=== PATIENT | female | born 1980 | race Caucasian/White ===

== ENCOUNTER 2018-07-02 12:18 | Outpatient (CLI) | payer MEDICAID ==
[2018-07-02 14:01] LABS: RHOGAM PROFILE 1 1
== END 2018-07-02 14:48 | disposition home or self-care (01) ==
LOC: OBT 12:18 → L-D 12:18 → OBT 14:48
DX: O09.522 Supervision of elderly multigravida, second trimester (principal); Z3A.28 28 weeks gestation of pregnancy
CPT/HCPCS: 76818; 86850; 86885; 86900; 86901; 96372

== ENCOUNTER 2018-08-04 13:07 | Outpatient (CLI) | payer MEDICAID | END 2018-08-04 18:45 | disposition home or self-care (01) | LOC: OBT 13:07 → L-D 13:09 → OBT 18:45 | DX: O9A.213 Injury, poisoning and certain other consequences of external causes complicating pregnancy, third trimester (principal); O62.9 Abnormality of forces of labor, unspecified; O09.523 Supervision of elderly multigravida, third trimester; Z3A.31 31 weeks gestation of pregnancy | CPT/HCPCS: 76815; 85460; 86850; 86870; 86900; 86901 ==

== ENCOUNTER 2018-09-01 19:00 | Emergency (ER) | payer MEDICAID ==
[2018-09-01 21:19] LABS: ADD MAN DIFF? NO
[2018-09-01 21:20] LABS: WHITE BLOOD COUNT 6.9 10^3/ul (4.8-10.8)
[2018-09-01 21:20] LABS: ABNORMAL IP MESSAGE 1; BASOPHILS % 0.1 % (0.0-2.0); EOSINOPHILS # 0.1 10^3/ul (0.0-0.5); EOSINOPHILS % 0.9 % (0.0-7.0); HEMATOCRIT 32.6 % (37.0-47.0); HEMOGLOBIN 10.6 g/dl (12.0-16.0); LYMPHOCYTES # 1.5 10^3/ul (0.8-2.9); MEAN CORPUSCULAR HGB CONC 32.5 g/dl (32.0-37.0); MEAN CORPUSCULAR VOLUME 89.3 fl (82.0-101.0); MONOCYTE # 0.5 10^3/ul (0.3-0.9); MONOCYTES % 6.7 % (0.0-11.0); NEUTROPHIL # 4.8 10^3/ul (1.6-7.5); NEUTROPHILS % 69.9 % (39.0-77.0); PLATELET COUNT 131 10^3/UL (140-415); RED BLOOD COUNT 3.65 10^6/ul (4.20-5.40); RED CELL DISTRIBUTION WIDTH 14.8 % (11.5-14.5)
[2018-09-01 21:29] LABS: MEAN PLATELET VOLUME 13.6 fl (7.4-10.4); POSITIVE DIFF @See below
[2018-09-01 21:48] LABS: ALANINE AMINOTRANSFERASE 9 IU/L (13-69); ALBUMIN 3.7 g/dl (3.3-4.9); ALBUMIN/GLOBULIN RATIO 1.02; ALKALINE PHOSPHATASE 188 IU/L (42-121); ANION GAP 8 (5-13); ASPARTATE AMINO TRANSFERASE 23 IU/L (15-46); BILIRUBIN,INDIRECT 0.1 mg/dl (0-1.1); BILIRUBIN,TOTAL 0.1 mg/dl (0.2-1.3); BLOOD UREA NITROGEN 9 mg/dl (7-20); CALCIUM 9.8 mg/dl (8.4-10.2); CARBON DIOXIDE 22 mmol/L (21-31); CHLORIDE 106 mmol/L (97-110); CREATININE 0.34 mg/dl (0.44-1.00); Estimated GFR > 60 mL/min (>60); GLUCOSE 99 mg/dl (70-220); LIPASE 107 U/L (23-300); SODIUM 136 mmol/L (135-144); TOTAL PROTEIN 7.3 g/dl (6.1-8.1)
== END 2018-09-01 22:26 | disposition home or self-care (01) ==
LOC: FTE 19:00
DX: O26.893 Other specified pregnancy related conditions, third trimester (principal); L29.9 Pruritus, unspecified; Z3A.37 37 weeks gestation of pregnancy
CPT/HCPCS: 36415; 80053; 83690; 85025; 99283

== ENCOUNTER 2018-09-06 14:55 | Inpatient (IN) | payer MEDICAID ==
[~2018-09-06 14:55] MED LIST: OXYTOCIN 30 UNITS/LR 500 ML BAG IV
[2018-09-06] MEDS: LACTATED RINGER'S 1,000 ML IV ×3 (15:23→18:40)
[2018-09-06] MEDS ORDERED: CARBOPROST 250 MCG INJ IM ×2 (18:30→21:30)
[2018-09-06] MEDS ORDERED: CEFAZOLIN 2 GM/50 ML (PMX) 50 ML IVPB (18:30)
[2018-09-06] MEDS ORDERED: MISOPROSTOL 200 MCG TAB PR ×2 (18:30→21:30)
[2018-09-06] MEDS ORDERED: OXYTOCIN 30 UNITS/LR 500 ML IV ×3 (18:30→21:30)
[2018-09-06] MEDS ORDERED: METHYLERGONOVINE 0.2 MG INJ IM ×2 (18:30→21:30)
[2018-09-06 18:37] LABS: ADD MAN DIFF? NO
[2018-09-06 18:38] LABS: WHITE BLOOD COUNT 6.4 10^3/ul (4.8-10.8)
[2018-09-06 18:38] LABS: ABNORMAL IP MESSAGE 1; BASOPHILS % 0.3 % (0.0-2.0); EOSINOPHILS % 0.6 % (0.0-7.0); HEMATOCRIT 32.4 % (37.0-47.0); HEMOGLOBIN 10.4 g/dl (12.0-16.0); LYMPHOCYTES # 1.6 10^3/ul (0.8-2.9); LYMPHOCYTES % 24.1 % (15.0-51.0); MEAN CORPUSCULAR HEMOGLOBIN 28.3 pg (29.0-33.0); MEAN CORPUSCULAR HGB CONC 32.1 g/dl (32.0-37.0); MEAN PLATELET VOLUME 13.8 fl (7.4-10.4); MONOCYTE # 0.4 10^3/ul (0.3-0.9); MONOCYTES % 6.9 % (0.0-11.0); NEUTROPHIL # 4.3 10^3/ul (1.6-7.5); NEUTROPHILS % 67.6 % (39.0-77.0); PLATELET COUNT 117 10^3/UL (140-415); RED BLOOD COUNT 3.68 10^6/ul (4.20-5.40)
[2018-09-06 18:52] LABS: POSITIVE DIFF @See below
[2018-09-06 18:54] LABS: INR 0.89; PROTIME 12.2 Sec (11.9-14.9)
[2018-09-06 18:55] LABS: PARTIAL THROMBOPLASTIN TIME 25.9 Sec (23.0-35.0)
[2018-09-06] MEDS ORDERED: ONDANSETRON 4 MG INJ (19:40)
[2018-09-06] MEDS ORDERED: morphine SULFATE/PF (10 MG/10 ML) INJ (19:40)
[2018-09-06] MEDS ORDERED: OXYTOCIN 10 UNIT INJ (19:40)
[2018-09-06] MEDS ORDERED: METHYLENE BLUE 50 MG/10 ML AMPUL (20:47)
[2018-09-06] MEDS ORDERED: OXYCODONE/ACETAMINOPHEN (5/325) TAB PO (21:30)
[2018-09-06] MEDS: CEFAZOLIN 2 GM/50 ML (PMX) 50 ML IVPB (21:30)
[2018-09-06] MEDS ORDERED: NACL 0.9% 3 ML SYG IV (21:30)
[2018-09-06] MEDS ORDERED: NALOXONE (0.4 MG/ML) INJ IV (22:00)
[2018-09-06] MEDS ORDERED: ONDANSETRON 4 MG INJ IV (22:00)
[2018-09-06] MEDS: DIPHENHYDRAMINE 50 MG INJ IV (23:01)
[2018-09-07] MEDS: KETOROLAC 30 MG INJ IV ×3 (00:06→18:29)
[2018-09-07] MEDS: OXYTOCIN 30 UNITS/LR 500 ML IV ×2 (01:24→01:31)
[2018-09-07] MEDS: CEFAZOLIN 2 GM/50 ML (PMX) 50 ML IVPB ×3 (06:11→22:31)
[2018-09-07] MEDS: morphine 2 MG INJ IV (06:41)
[2018-09-07 08:35] LABS: ADD MAN DIFF? NO
[2018-09-07 08:48] LABS: ABNORMAL IP MESSAGE 1; BASOPHILS % 0.1 % (0.0-2.0); EOSINOPHILS % 0.3 % (0.0-7.0); HEMATOCRIT 27.7 % (37.0-47.0); LYMPHOCYTES # 1.2 10^3/ul (0.8-2.9); LYMPHOCYTES % 15.9 % (15.0-51.0); MEAN CORPUSCULAR HEMOGLOBIN 28.5 pg (29.0-33.0); MEAN CORPUSCULAR HGB CONC 32.5 g/dl (32.0-37.0); MEAN CORPUSCULAR VOLUME 87.7 fl (82.0-101.0); MONOCYTE # 0.4 10^3/ul (0.3-0.9); MONOCYTES % 5.5 % (0.0-11.0); NEUTROPHILS % 77.8 % (39.0-77.0); PLATELET COUNT 104 10^3/UL (140-415); RED BLOOD COUNT 3.16 10^6/ul (4.20-5.40); RED CELL DISTRIBUTION WIDTH 15.4 % (11.5-14.5)
[2018-09-07 08:48] LABS: WHITE BLOOD COUNT 7.8 10^3/ul (4.8-10.8)
[2018-09-07 09:00] LABS: POSITIVE DIFF @See below
[2018-09-07] MEDS: LACTATED RINGER'S 1,000 ML IV ×3 (11:07→23:36)
[2018-09-07 14:26] LABS: RHOGAM PROFILE 1 1
[2018-09-07] MEDS: LANOLIN HPA 1 PKT TOP (18:28)
[2018-09-07 22:29] LABS: RAPID PLASMA REAGIN NONREACTIVE (NR)
[2018-09-07] MEDS: IBUPROFEN 600 MG TAB PO ×2 (22:34→23:37)
[2018-09-07] MEDS: OXYCODONE/ACETAMINOPHEN (5/325) TAB PO (23:36)
[2018-09-08] MEDS: IBUPROFEN 600 MG TAB PO ×3 (06:23→17:18)
[2018-09-08] MEDS: LACTATED RINGER'S 1,000 ML IV (08:00)
[2018-09-08] MEDS: NEOMYC/POLYMYX/BACIT 30 GM OINT TOP (16:39)
[2018-09-08] MEDS: MEASLES,MUMPS,RUBELLA VACCINE INJ SC* (16:40)
[2018-09-08] MEDS: OXYCODONE/ACETAMINOPHEN (5/325) TAB PO (22:46)
[2018-09-09] MEDS: IBUPROFEN 600 MG TAB PO ×3 (02:11→11:53)
[2018-09-09] MEDS: NEOMYC/POLYMYX/BACIT 30 GM OINT TOP ×2 (02:17→09:20)
[2018-09-09] MEDS: DIPHTH/TET/ACEL PERTUSS (ADULT) 0.5 ML VIAL IM* (09:21)
[2018-09-09] MEDS: OXYCODONE/ACETAMINOPHEN (5/325) TAB PO (11:06)
== END 2018-09-09 15:30 | disposition home or self-care (01) | DRG 785 ==
LOC: L-D 09-07 00:02 → OBT 14:55 → PP1 09-07 00:29 → L-D 14:58 → OBT 18:24 → L-D 18:24
PROVIDERS: Obstetrics & Gynecology
PROC: 10D00Z1 Extraction of Products of Conception, Low, Open Approach (ICD-10-PCS; principal; 2018-09-07)
PROC: 0UB70ZZ Excision of Bilateral Fallopian Tubes, Open Approach (ICD-10-PCS; 2018-09-07)
PROC: 0UN90ZZ Release Uterus, Open Approach (ICD-10-PCS; 2018-09-07)
DX: O41.03X0 Oligohydramnios, third trimester, not applicable or unspecified (principal); O34.219 Maternal care for unspecified type scar from previous cesarean delivery; O99.89 Other specified diseases and conditions complicating pregnancy, childbirth and the puerperium; N73.6 Female pelvic peritoneal adhesions (postinfective); Z3A.37 37 weeks gestation of pregnancy; Z37.0 Single live birth; Z30.2 Encounter for sterilization
CPT/HCPCS: 36415; 85025; 85610; 85730; 86592; 86850; 86885; 86900; 86901; 88302; 90715; 96360; 96361; 99464